=== PATIENT | female | born 1955 | race Caucasian/White ===

== ENCOUNTER 2016-08-12 17:01 | Emergency (ER) | payer OTHER ==
[~2016-08-12] VITALS: Ht 167.6 cm; Wt 63.6 kg
[2016-08-12 17:04] VITALS: BP 151/96; PULSE 88; RESP 20; O2SAT 99
[2016-08-12] MEDS ORDERED: Ondansetron 8 mg ODT Tablet PO ONE (17:10)
[2016-08-12] MEDS ORDERED: Ondansetron 8 mg ODT Tablet ONE (17:10)
[2016-08-12] MEDS ORDERED: Ondansetron 2 mg/mL 2 mL Inj IVPUSH PRN (17:25)
[2016-08-12] MEDS ORDERED: HYDROmorphone 0.5 mg/0.5 mL iSecure Syringe IVPUSH PRN (17:25)
[2016-08-12] MEDS ORDERED: 0.9% Sodium Chloride 1,000 ML IV ONE ×3 (17:25→20:25)
[2016-08-12] MEDS ORDERED: Ondansetron 2 mg/mL 2 mL Inj IVPUSH ONE (17:25)
--- NOTE | 2016-08-12 17:27 | ED.REPORT ---
HPI-Abd Pain F 40 and Over Date of Service Aug 12, 2016 ED Provider: SirenaJer Jaswant MATTSON Pt is a 60 y/o female w/ a hx of alcohol abuse presenting to the ED c/o epigastric abdominal pain onset 6 days ago. She c/o associated nausea, vomiting. She denies fever, chills, diarrhea. She used to drink alcohol about 2- 4 hard drinks a night but stopped after the onset of her symptoms. There is no history of pancreatitis. Surgical hx: appendectomy as a child Nursing Notes Stated Complaint: STOMACH PAIN/VOMITING Chief Complaint: Female Abdominal Pain Nursing Notes Reviewed: Yes Allergies: Coded Allergies: Sulfa (Sulfonamide Antibiotics) (Verified Allergy, Intermediate, rash, ) cephalexin (Verified Allergy, Unknown, hives, 08/12/16) General Time Seen by MD: 17:24 Chief Complaint Abdominal pain Hx Obtained From: Patient Arrived By: Walk-in Sudden in Onset?: No Onset Occurred: 6 days ago Symptom Duration: Since onset Location: : Epigastric Quality: Painful Radiation: : Does not radiate Severity: Current: Moderate Severity: Maximum: Moderate Past Medical History Past Medical History Migraines Hypertension Alcohol abuse Insomnia Past Surgical History Appendectomy Smoking History Never Smoker Social History Alcohol Use: 3-5 per day Drug Use: Denies drug use Ambulatory Status Independent Review of Systems Constitutional: Denies: Chills, Fever Respiratory: Denies: Non-productive cough, Shortness of breath Cardiovascular: Denies: Chest pain GI: Reports: Abdominal pain, Nausea, Vomiting, Denies: Diarrhea Complete sys rev & neg: except as marked. Physical Exam Vital Signs Vital Signs (First) Date Time Temp Pulse Resp B/P Pulse Ox O2 Delivery O2 Flow Rate FiO2 08/12/16 17:04 36.2 88 20 151/96 99 Room Air Initial VS: Reviewed, Vital signs normal Head / Eyes: Atraumatic, Normocephalic, PERRL ENT: Mucous membranes moist, Conjunctiva normal, No scleral icterus Neck: Supple, Full range of motion Extremities: Vascular intact, Neuro intact, No swelling Skin: Warm, Dry, No cyanosis Neurologic: Alert, Oriented, Nonfocal Psychiatric: Mood/affect normal, Behavior normal, Normal thought content General/Constitutional: Awake, Alert, Cooperative, Not toxic appearing Distress / Hydration: Positive: Distress moderate Appearance / Presentation: Positive: In pain, Uncomfortable Writhing in pain and vomiting Respiratory / Chest: Breath sounds NL, Breath sounds = bilat, No respiratory distress, No rales, No rhonchi, No wheezing Cardiovascular: Heart rate NL, Regular rhythm, Heart sounds NL, No gallop, No murmurs, No rubs, Cap refill not delayed Abdomen: Atraumatic, Soft, No rebound, No distention, No palpable mass Diffuse abdominal tenderness, worse epigastric with guarding Back: Full range of motion, Painless range of motion Interpretation & Diagnostics Lab Results Interpretation Result Diagram: 08/12/16 1745 08/12/16 1745 Test 08/12/16 17:45 08/12/16 19:28 White Blood Count 10.1th/mm3 (3.8-10.1) Red Blood Count 4.32mil/mm3 (3.90-5.20) Hemoglobin 14.1g/dL (12.0-15.6) Hematocrit 41.6% (35.0-46.0) Mean Corpuscular Volume 96.3fL (81-100) Mean Corpuscular Hemoglobin 32.6pg (27.0-35.0) Mean Corpuscular Hemoglobin Concent 33.9% (32.0-37.0) Red Cell Distribution Width 12.5% (12.3-15.4) Platelet Count 205bil/L (150-400) Neutrophils (%) (Auto) 81.1% (40-74) Lymphocytes (%) (Auto) 11.6% (14-46) Monocytes (%) (Auto) 6.5% (4-12) Eosinophils (%) (Auto) 0.4% (0-5) Basophils (%) (Auto) 0.3% (0-3) Sodium Level 142mEq/L (134-144) Potassium Level 3.7mEq/L (3.5-5.2) Chloride Level 104mEq/L (97-108) Carbon Dioxide Level 20mmol/L (18-29) Blood Urea Nitrogen 16mg/dL (8-27) Creatinine 0.65mg/dL (0.57-1.00) Estimat Glomerular Filtration Rate 132mL/min (>59) Glucose Level 128mg/dL (60-99) Lactic Acid Level 2.1mmol/L (0.4-2.0) Calcium Level 9.3mg/dL (8.5-10.1) Magnesium Level 1.8mg/dL (1.6-2.6) Total Bilirubin 0.2mg/dL (0.0-1.2) Aspartate Amino Transf (AST/SGOT) 15U/L (0-50) Alanine Aminotransferase (ALT/SGPT) 15U/L (0-32) Alkaline Phosphatase 59U/L (25-165) Total Protein 6.9g/dL (6.4-8.4) Albumin 4.1g/dL (3.4-5.0) Lipase 53U/L (13-60) Hold Elena Top Tube Received (Received) Urine Color Yellow (YELLOW) Urine Appearance Hazy (CLEAR,HAZY) Urine pH 6.5 (5.0-8.0) Urine Specific [place] 1.015 (1.003-1.035) Urine Protein Negativemg/dL (NEG,TRACE) Urine Glucose (UA) 100mg/dL (NEGATIVE) Urine Ketones Negativemg/dL (NEGATIVE) Urine Occult Blood Negative (NEGATIVE) Urine Nitrite Negative (NEGATIVE) Urine Bilirubin Negative (NEGATIVE) Urine Urobilinogen Normalmg/dL (NORMAL) Urine Leukocyte Esterase Negative (NEGATIVE) Urine RBC 0-2/hpf (0-2) Urine WBC 0-5/hpf (0-5) Urine Epithelial Cells Few/hpf (NONE-MOD) Urine Crystals None seen (NONE SEEN) Urine Bacteria Few/hpf (NONE-FEW) Urine Hyaline Casts None/lpf (NONE) Urine Granular Casts None seen (NONE SEEN) Urine Waxy Casts None seen (NONE SEEN) Urine Red Blood Cell Casts None seen (NONE SEEN) Urine White Blood Cell Casts None seen (NONE SEEN) Urine Mucus Present (None Seen) Urine Trichomonas None seen (NONE SEEN) Urine Yeast None (NONE SEEN) Urinalysis Comment None Urine Culture Reflexed Not indicated CT Abd / Pelvis Interpretation IMPRESSION: 1. No acute intra-abdominal findings. The appendix is not visualized; however there are no ancillary findings to suggest acute appendicitis. 2. Extensive sigmoid colon diverticulosis. No acute diverticulitis. 3. Small hiatal hernia. 4. Probable old L1 wedge compression deformity and large inferior endplate Schmorl's node. No prior comparisons are available to determine the acuity of this finding. Please correlate with previous trauma history. Dictated by: Alma Merritt M.D. on 08/12/2016 at 21:13 Approved by: Alma Merritt M.D. on 08/12/2016 at 21:19 Study type: Abdominal CT IV contrast, Abdom CT oral contrast Interpretation / Wet Read by: Interpret - Radiologist Re-Eval/Medical Decision Med Decision/Clinical Course I suspect pt may have some component of gastritis based on her abdominal pain and h/o drinking. No other dangerous causes identified on workup today Re-Evaluation/Progress : Time of Eval: 21:47 Re-Evaluation/Progress Note: Pt rechecked. No distress. Nausea and pain decreased. Abdominal exam markedly less tender. Has some residual LLQ tenderness without rebound or guarding. Discussed lab and imaging findings. Informed pt of plan for treatment. Pt understands and agrees with plan for treatment. F/U instructions and RTER warnings given. All questions addressed. Counseled Regarding: Diagnosis, Lab results, Need for follow-up, When/why to return to ED Discharge & Departure Primary Impression: Abdominal pain Abdominal location: unspecified location Qualified Code: R10.9 - Unspecified abdominal pain Additional Impressions: Nausea and vomiting Vomiting type: unspecified Vomiting Intractability: non-intractable Qualified Code: R11.2 - Nausea with vomiting, unspecified Hiatal hernia Sigmoid diverticulosis Compression fracture of L1 lumbar vertebra Encounter type: initial encounter Fracture type: closed Qualified Code: S32.010A - Wedge compression fracture of first lumbar vertebra, initial encounter for closed fracture Disposition: Home Discharge Condition All VS Reviewed: Yes Condition: Improved Patient Instructions: Acute Abdominal Pain (ED) Additional Instructions: The cause of your symptoms is unclear, but is not dangerous at this time. Labs and CT scan today were reassuring. Take Zofran as needed for nausea or vomiting. Return to the emergency department if you experience severe abdominal pain, high fever, persistent vomiting, bloody or black stools, or for other concerning symptoms. Follow-up with your primary care doctor next week to discuss today's visit. Call on Sunday to schedule an appointment. Referrals: Rhea Wells MD Scribe Attestation Portions of this note were transcribed by Seun Vigil. IDr. Pack personally performed the history, physical exam and medical decision-making; I reviewed and confirmed the accuracy of the information in the transcribed note. Signed by Sunny Rodriguez, 08/12/16 - 1799 copies to: Rhea Wells MD, Gary R DO Aug 12, 2016 17:27 SEUN VIGIL Aug 12, 2016 17:55
[2016-08-12 17:55] LABS: BASOPHILS % (AUTO) 0.3 % (0-3); EOSINOPHILS % (AUTO) 0.4 % (0-5); MONOCYTES % (AUTO) 6.5 % (4-12); Mean Corpuscular Hemoglobin 32.6 pg (27.0-35.0); Mean Corpuscular Volume 96.3 fL (81-100); NEUTROPHILS % (AUTO) 81.1 % (40-74); Platelet Count 205 bil/L (150-400)
[2016-08-12] MEDS ORDERED: HYDROmorphone 1 mg/mL Inj IVPUSH ONE (18:25)
[2016-08-12] MEDS ORDERED: MetoCLOpramide 5 mg/mL 2 mL Inj IVPUSH ONE (18:25)
[2016-08-12] MEDS ORDERED: Ketorolac 15 mg/mL Inj IVPUSH ONE (18:25)
[2016-08-12 18:27] LABS: Magnesium 1.8 mg/dL (1.6-2.6)
[2016-08-12] MEDS ORDERED: Iohexol 300 mg/mL 30 mL Inj PO ONE (19:20)
[2016-08-12 19:51] LABS: APPEARANCE,URINE HAZY (CLEAR,HAZY); COLOR,URINE YELLOW (YELLOW); OCCULT BLOOD,URINE NEGATIVE (NEGATIVE); PH,URINE 6.5 (5.0-8.0); UROBILINOGEN,URINE NORMAL (NORMAL)
[2016-08-12 20:45] VITALS: BP 119/70; PULSE 80; RESP 16; O2SAT 96
--- NOTE | 2016-08-12 21:20 | DRSVH ---
PROCEDURE: CT ABDOMEN AND PELVIS WITH CONTRAST ([id number]) INDICATIONS: abdominal pain, n/v TECHNIQUE: After the administration of oral and intravenous contrast, 5 mm thick sections acquired from the diap hragms to the symphysis. 5 mm thick coronal and sagittal reformats were performed. For radiation do se reduction, the following was used: automated exposure control, adjustment of mA and/or kV accordi ng to patient size. COMPARISON: None. FINDINGS: Image quality: Excellent. ABDOMEN: Lung bases: Lung bases are clear. Heart size is normal. Solid organs: Liver and spleen are normal in size and enhancement. Gallbladder is unremarkable. Bi liary system is non-dilated. Pancreas enhances normally. No adrenal nodules. Kidneys are normal in size and enhancement, without hydronephrosis. Peritoneum and bowel: There is a small hiatal hernia. Stomach, small bowel, and colon loops are norm al in caliber and wall thickness. The appendix is not visualized; however there is no discrete right lower quadrant fluid or fat stranding to suggest acute appendicitis. There extensive sigmoid: Diverti cular outpouchings. No pericolonic fat stranding or free fluid to suggest acute diverticulitis. No fr ee fluid or air. Nodes and vessels: No retroperitoneal or mesenteric adenopathy. Aorta and inferior vena cava are no rmal in caliber. Miscellaneous: No ventral hernias. PELVIS: Genitourinary: Bladder wall thickness is normal. Miscellaneous: No inguinal hernias or adenopathy. Bones: No suspicious bony lesions a wedge compression deformity is present at L1 with a large Schmor l's node along the anterior inferior endplate. This has a sclerotic appearance suggesting this is a c hronic finding. IMPRESSION: 1. No acute intra-abdominal findings. The appendix is not visualized; however there are no ancillary findings to suggest acute appendicitis. 2. Extensive sigmoid colon diverticulosis. No acute diverticulitis. 3. Small hiatal hernia. 4. Probable old L1 wedge compression deformity and large inferior endplate Schmorl's node. No prior c omparisons are available to determine the acuity of this finding. Please correlate with previous aren horner history. Dictated by: Alma Merritt M.D. on 08/12/2016 at 21:13 Approved by: Alma Merritt M.D. on 08/12/2016 at 21:19
[2016-08-12] MEDS ORDERED: _Ondansetron ODT 4 mg Tablet PO PRN (21:55)
[2016-08-12 22:45] VITALS: BP 133/73; PULSE 80; RESP 16; O2SAT 96
== END 2016-08-12 22:47 | disposition home or self-care (01) ==
LOC: SED 17:01
DX: S32.010A Wedge compression fracture of first lumbar vertebra, initial encounter for closed fracture (principal); X58.XXXA Exposure to other specified factors, initial encounter; Y93.89 Activity, other specified; Y92.89 Other specified places as the place of occurrence of the external cause; Y99.8 Other external cause status; K57.32 Diverticulitis of large intestine without perforation or abscess without bleeding; K44.9 Diaphragmatic hernia without obstruction or gangrene; I10 Essential (primary) hypertension; G43.909 Migraine, unspecified, not intractable, without status migrainosus; Z98.890 Other specified postprocedural states; Z88.1 Allergy status to other antibiotic agents; Z88.2 Allergy status to sulfonamides
CPT/HCPCS: 36415; 74177; 80053; 81000; 83605; 83690; 83735; 85025; 96361; 96374; 96375; 96376; 99285; J1170; J1885; J2405; J2765; J7030; Q9967

== ENCOUNTER 2016-09-22 17:15 | Emergency (ER) | payer OTHER ==
[~2016-09-22] VITALS: Ht 167.6 cm; Wt 63.6 kg
[2016-09-22 17:57] VITALS: BP 199/101; PULSE 66; RESP 20; O2SAT 99
[2016-09-22 18:04] LABS: BASOPHILS % (AUTO) 0.5 % (0-3); MONOCYTES % (AUTO) 8.5 % (4-12); Mean Corpuscular Hemoglobin 32.4 pg (27.0-35.0); Mean Corpuscular Volume 96.7 fL (81-100); Platelet Count 308 bil/L (150-400)
--- NOTE | 2016-09-22 18:11 | ED.REPORT ---
HPI-Abd Pain F 40 and Over Date of Service Sep 22, 2016 ED Provider: Ugo Hernandes MD Pt is a 60 year old female who presents to the ED via EMS with complaints of severe, cramping abdominal pain and nausea onset this morning. She reports that the pain is sharp and diffuse in her abdomen. Pt states that she has experienced this pain in the past, one month ago when she was seen here in the ED. She denies any diarrhea, constipation, dysuria, back pain. Pt is hysterical and gives a difficult history. Nursing Notes Stated Complaint: ABDOMINAL PAIN Chief Complaint: Female Abdominal Pain Nursing Notes Reviewed: Yes Allergies: Coded Allergies: Sulfa (Sulfonamide Antibiotics) (Verified Allergy, Intermediate, rash, ) cephalexin (Verified Allergy, Unknown, hives, 08/12/16) Scheduled Omeprazole (Omeprazole) 40 Mg Capsule.dr 40 MG PO DAILY General Time Seen by MD: 18:04 Chief Complaint Abdominal pain Hx Obtained From: Patient Arrived By: Ambulance Sudden in Onset?: Yes Onset Occurred: 9 - 12 hours ago Symptom Duration: Since onset Progression since Onset: Unchanged Location: : Diffuse: Epigastric Quality: Cramping, Painful Severity: Current: Moderate Severity: Maximum: Moderate Similar Sx Previous: Yes Past Medical History Past Medical History Migraines Hypertension Alcohol abuse Insomnia Past Surgical History Appendectomy Smoking History Never Smoker Social History Alcohol Use: 3-5 per day Drug Use: Denies drug use Ambulatory Status Independent Review of Systems Constitutional: Denies: Chills, Fever, Malaise, Weakness - generalized Respiratory: Denies: Non-productive cough, Wheezing Cardiovascular: Denies: Chest pain, Syncope GI: Reports: Abdominal pain, Nausea, Vomiting, Denies: Constipation Female: Denies: Flank pain, Urinary frequency, Urinary urgency Musculoskeletal: Denies: Back pain Complete sys rev & neg: except as marked. Physical Exam Vital Signs Vital Signs (First) Date Time Temp Pulse Resp B/P Pulse Ox O2 Delivery O2 Flow Rate FiO2 09/22/16 17:57 36.2 66 20 199/101 99 Room Air Initial VS: Reviewed Head / Eyes: Atraumatic, Normocephalic, PERRL ENT: Mucous membranes moist, Conjunctiva normal, No scleral icterus Neck: Supple, Non-tender, Full range of motion Skin: Warm, Dry, No cyanosis General/Constitutional: Awake, Alert Distress / Hydration: Positive: Distress moderate Behavior: Positive: Uncooperative Respiratory / Chest: Atraumatic, Breath sounds NL, Breath sounds = bilat, No respiratory distress Cardiovascular: Heart rate NL, Regular rhythm, Heart sounds NL, No gallop, No murmurs, No rubs Abdomen: Soft, No guarding, No rebound, No distention Tenderness/Guarding/Rebound: Positive: Tender epigastric Back: Atraumatic, Inspection NL, Full range of motion Interpretation & Diagnostics Lab Results Interpretation Result Diagram: 09/22/16 1729 09/22/16 1729 Test 09/22/16 17:29 09/22/16 20:49 White Blood Count 11.6th/mm3 (3.8-10.1) Red Blood Count 4.78mil/mm3 (3.90-5.20) Hemoglobin 15.5g/dL (12.0-15.6) Hematocrit 46.2% (35.0-46.0) Mean Corpuscular Volume 96.7fL (81-100) Mean Corpuscular Hemoglobin 32.4pg (27.0-35.0) Mean Corpuscular Hemoglobin Concent 33.5% (32.0-37.0) Red Cell Distribution Width 12.9% (12.3-15.4) Platelet Count 308bil/L (150-400) Neutrophils (%) (Auto) 66.0% (40-74) Lymphocytes (%) (Auto) 23.7% (14-46) Monocytes (%) (Auto) 8.5% (4-12) Eosinophils (%) (Auto) 1.0% (0-5) Basophils (%) (Auto) 0.5% (0-3) Sodium Level 140mEq/L (134-144) Potassium Level 3.4mEq/L (3.5-5.2) Chloride Level 99mEq/L (97-108) Carbon Dioxide Level 22mmol/L (18-29) Blood Urea Nitrogen 16mg/dL (8-27) Creatinine 0.81mg/dL (0.57-1.00) Estimat Glomerular Filtration Rate 103mL/min (>59) Glucose Level 118mg/dL (60-99) Calcium Level 10.9mg/dL (8.5-10.1) Magnesium Level 2.0mg/dL (1.6-2.6) Total Bilirubin 0.5mg/dL (0.0-1.2) Aspartate Amino Transf (AST/SGOT) 21U/L (0-50) Alanine Aminotransferase (ALT/SGPT) 21U/L (0-32) Alkaline Phosphatase 84U/L (25-165) Total Protein 8.3g/dL (6.4-8.4) Albumin 4.9g/dL (3.4-5.0) Lipase 48U/L (13-60) Hold Urine Received (Received) ECG Interpretation ECG Interpretation: SR - 60 No STT changes Time: 21:39 Interpreted by: ED physician CT Abd / Pelvis Interpretation IMPRESSION: 1. Sigmoid colon diverticulosis, without acute diverticulitis. 2. The appendix is unable to be visualized. Absence of inflammatory changes in the right lower quadrant mesentery would make acute appendicitis less likely. 3. Nonacute L1 inferior endplate compression fracture as before. 4. Small retrocardiac hiatal hernia again noted. Dictated by: Hilton Orellana M.D. on 09/22/2016 at 21:16 Interpretation / Wet Read by: Interpret - Radiologist Re-Eval/Medical Decision Med Decision/Clinical Course 60-year-old female presenting with diffuse abdominal pain. History of similar in the past. She had been diagnosed with a hiatal hernia. She displayed drug-seeking behavior. Labs are unremarkable. CT scan showed hiatal hernia diverticulosis no evidence of diverticulitis or other acute pathology. Urine was negative for infection. Pain is possibly related to hiatal hernia. Patient was discharged home with return precautions. Follow-up with primary doctor next week. Source of Hx: EMS Summary of Info: CT scan from 08/12/16: IMPRESSION: 1. No acute intra-abdominal findings. The appendix is not visualized; however there are no ancillary findings to suggest acute appendicitis. 2. Extensive sigmoid colon diverticulosis. No acute diverticulitis. 3. Small hiatal hernia. 4. Probable old L1 wedge compression deformity and large inferior endplate Schmorl's node. No prior comparisons are available to determine the acuity of this finding. Please correlate with previous trauma history. Dictated by: Alma Merritt M.D. on 08/12/2016 at 21:13 Re-Evaluation/Progress #1: Time of Eval: 20:47 Re-Evaluation/Progress Note: Pt is rechecked and informed of her lab results and the plan to discharge her at this time. She requests a CT scan. Re-Evaluation/Progress #2: Time of Eval: 21:47 Re-Evaluation/Progress Note: Pt is rechecked and informed of her CT scan results and the plan to discharge her at this time. Counseled Regarding: Diagnosis, Lab results, Need for follow-up, When/why to return to ED Discharge & Departure Primary Impression: Abdominal pain Additional Impressions: Hiatal hernia Diverticulosis Disposition: Home Discharge Condition All VS Reviewed: Yes Condition: Stable Patient Instructions: Diverticulitis (ED) Additional Instructions: We found no concerning symptoms for your abdominal pain today. Take the Prilosec daily, as well as Tums as needed. Follow up with your primary care provider on Sunday. Return to the emergency room with any worsening pain, fevers , nausea, vomiting, or any other concerning symptoms. Referrals: Rhea Wells MD (PCP) Nimoibroly Attestation Portions of this note were transcribed by Audrey Mccarthy. I, Dr. Hernandes personally performed the history, physical exam and medical decision-making; I reviewed and confirmed the accuracy of the information in the transcribed note. Signed by:Sunny Saldana, 09/22/2016 3101 copies to: Rhea Wells MD, Ben M MD Sep 22, 2016 18:11 DEBBIE MCCARTHY Sep 22, 2016 18:29
[2016-09-22] MEDS ORDERED: LidocaineVisc 2%:Antacid 1:1 10 mL Syringe PO ONE (18:35)
[2016-09-22] MEDS: Ondansetron 2 mg/mL 2 mL Inj IVPUSH PRN ×3 (18:57→22:44)
[2016-09-22] MEDS ORDERED: MetoCLOpramide 5 mg/mL 2 mL Inj IVPUSH ONE (19:40)
[2016-09-22 20:06] VITALS: BP 181/101; PULSE 67; RESP 20; O2SAT 100
--- NOTE | 2016-09-22 21:25 | DRSVH ---
PROCEDURE: CT ABDOMEN AND PELVIS WITH CONTRAST (PNL-7102) INDICATIONS: 60 year-old female with diffuse abdominal pain. TECHNIQUE: After the administration of intravenous contrast, 5 mm thick sections acquired from the diaphragm to the symphysis. 5 mm coronal and sagittal reformats were acquired. For radiation dose reduction, the following was used: automated exposure control, adjustment of mA and/or kV according to patient alisa dunham. COMPARISON: [facility], CT, CT ABD PELVIS W CON, 08/12/2016, 20:48. FINDINGS: Image quality: Excellent. ABDOMEN: Lung bases: Lung bases are clear. Heart size is normal. There is small hiatal hernia. Solid organs: Liver and spleen are normal in size and enhancement. Gallbladder wall thickness is no rmal. Biliary system is non dilated. Pancreas enhances normally. No adrenal nodules. Kidneys demo nstrate normal size and enhancement, without hydronephrosis. Peritoneum and bowel: Bowel loops demonstrate normal wall thickness and caliber. There is sigmoid c olon diverticulosis. The appendix is unable to be visualized. No free fluid or air. Nodes and vessels: No retroperitoneal or mesenteric adenopathy by size criteria. Aorta and inferior vena cava are normal in size, with scant aortic atherosclerosis. Miscellaneous: No ventral hernias. PELVIS: Genitourinary: Bladder wall thickness is normal. Uterus and left ovary are normal in size. The righ t ovary is unable to be seen. Miscellaneous: No inguinal hernias or adenopathy. Bones: No suspicious bony lesions. No acute vertebral body compression fractures. Nonacute L1 infer ior endplate compression fracture is unchanged, with concomitant prominent Schmorl's node from disc d egeneration. There is mild lumbar spine dextroscoliosis. IMPRESSION: 1. Sigmoid colon diverticulosis, without acute diverticulitis. 2. The appendix is unable to be visualized. Absence of inflammatory changes in the right lower quadra nt mesentery would make acute appendicitis less likely. 3. Nonacute L1 inferior endplate compression fracture as before. 4. Small retrocardiac hiatal hernia again noted. Dictated by: Hilton Orellana M.D. on 09/22/2016 at 21:16 Approved by: Hilton Orellana M.D. on 09/22/2016 at 21:23
[2016-09-22] MEDS ORDERED: OMEP40CA36 PO (21:51)
[2016-09-22 22:45] VITALS: BP 197/115; PULSE 69; RESP 20; O2SAT 99
== END 2016-09-22 22:49 | disposition home or self-care (01) ==
LOC: EDSEX 17:15 → SED 17:15 → EDBD 17:15 → SED 22:49
DX: K44.9 Diaphragmatic hernia without obstruction or gangrene (principal); K57.90 Diverticulosis of intestine, part unspecified, without perforation or abscess without bleeding; I10 Essential (primary) hypertension; Z88.1 Allergy status to other antibiotic agents; Z88.2 Allergy status to sulfonamides
CPT/HCPCS: 36415; 74177; 80053; 83690; 83735; 85025; 93005; 96374; 96375; 96376; 99285; J1885; J2270; J2405; J2765; Q9967